=== PATIENT | male | born 1950 | race Two or more races ===

== ENCOUNTER → 2019-03-29 | Outpatient (CLI) | payer MEDICARE ==
[~2019-03-29] MED LIST: OMNIPAQUE 350 MG/ML, 100ML BOTTLE ONE
== END | disposition home or self-care (01) ==
LOC: CFH 13:51
PROVIDERS: ATTEND Internal Medicine Hematology & Oncology
DX: C82.43 Follicular lymphoma grade IIIb, intra-abdominal lymph nodes (principal)
CPT/HCPCS: 71260; 74177; 82565; Q9967